=== PATIENT | male | born 1960 | race Caucasian/White ===

== ENCOUNTER → 2016-11-23 | Day surgery (SDC) | payer OTHER ==
[~2016-11-23] MED LIST: ASPIRIN EC 325 MG TAB PO ONE; DIAZEPAM 5 MG TAB ONE; DIAZEPAM 5 MG TAB PO ONE; ETOMIDATE 40 MG/20 ML INJ ONE; FAMOTIDINE 20 MG TAB ONE; FAMOTIDINE 20 MG TAB PO ONE; HEPARIN 10,000 UNIT/10 ML MDV ONE; IOPAMIDOL (ISOVUE-370) 150 ML BTL IV ONE; LIDOCAINE 1% 300 MG/30 ML SDV ONE; MIDAZOLAM 2 MG/2 ML VIAL ONE; NS 1,000 ML IV ONE; VERAPAMIL 5 MG/2 ML VIAL ONE; diphenhydrAMINE 25 MG CAP PO ONE; fentaNYL 100 MCG/2 ML INJ ONE
--- NOTE | 2016-11-23 13:27 | CPEKG ---
Heart Rate: 54 RR Interval: 1111 P-R Interval: 180 QRSD Interval: 88 QT Interval: 456 QTC Interval: 433 P [place]: 75 QRS [place]: 90 T Wave [place]: 69 EKG Severity - OTHERWISE NORMAL ECG - EKG Impression: SINUS RHYTHM EKG Impression: BORDERLINE RIGHT AXIS DEVIATION Electronically Signed By: Steve Villa 24-Nov-2016 12:02:56
[2016-11-23 13:39] LABS: % IMMATURE GRANULYOCYTES 0.3 % (0.0-1.1); ABSOLUTE IMMATURE GRANULOCYTES 0.02 10^3/uL (0.00-0.10); ADD DIFF? NO; ADD MORPH? NO; ADD SCAN? NO; ATYPICAL LYMPHOCYTE FLAG 10 (0-99); FRAGMENT RBC FLAG 0 (0-99); HEMOGLOBIN 14.9 g/dL (13.7-17.5); LEFT SHIFT FLG 0 (0-99); LIPEMIA HEMOLYSIS FLAG 90 (0-99); MEAN CELL HEMOGLOBIN 31.3 pg (27.9-34.1); MEAN CELL HEMOGLOBIN CONCENTR. 33.9 g/dL (32.4-36.7); MEAN CELL VOLUME 92.4 fL (81.5-99.8); MEAN PLATELET VOLUME 9.6 fL (8.7-11.7); PLATELET CLUMPS FLAG 0 (0-99); PLATELET COUNT 250 10^3/uL (150-400); RED BLOOD CELL COUNT 4.76 10^6/uL (4.40-6.38); RED CELL DISTRIBUTION WIDTH 12.4 % (11.5-15.2)
[2016-11-23 13:48] LABS: INR 2.11 (0.83-1.16); PROTIME(PATIENT) 23.8 SEC (12.0-15.0)
[2016-11-23 14:00] LABS: ANION GAP 11 mEq/L (8-16); CALCIUM 9.6 mg/dL (8.5-10.4); CARBON DIOXIDE 20 mEq/l (22-31); CHLORIDE 109 mEq/L (97-110); CHOLESTEROL 233 mg/dL (140-220); CHOLESTEROL/HDL RATIO 3.33 RATIO (1.00-4.97); CREATININE 0.9 mg/dL (0.7-1.3); GLOMERULAR FILTRATION RATE > 60; GLUCOSE 91 mg/dL (70-100); HIGH DENSITY LIPOPROTEIN 70 mg/dL (40-65); LDL/HDL RATIO 1.96 RATIO (1.00-3.64); LOW DENSITY LIPOPROTEIN 137 mg/dL (80-100); MAGNESIUM 1.9 mg/dL (1.6-2.3); NON-HIGH DENSITY LIPOPROTEIN 163 mg/dL (90-129); POTASSIUM 4.2 mEq/L (3.5-5.2); SODIUM 140 mEq/L (134-144); TRIGLYCERIDE 134 mg/dL (40-150); VERY LOW DENSITY LIPOPROTEINS 26 mg/dL (8-25)
--- NOTE | 2016-11-24 13:32 | CPIP ---
[f rep st] INVASIVE CARDIAC PROCEDURE DATE OF PROCEDURE: 11/23/2016 PROCEDURES PERFORMED: 1. Selective coronary angiography. 2. Left heart catheterization. 3. Left ventriculogram. 4. TR band arteriotomy repair. COMPLICATIONS: None. INDICATIONS/APPROPRIATE USE CRITERIA FOR THE PATIENT: History of positive calcium score with abnorm al and high risk stress test suggestive of possible myocardial ischemia. PROCEDURE IN DETAIL: After informed consent was obtained n.p.o. status was confirmed, the region of the left wrist was cleaned, prepped, and draped in sterile fashion. A plethysmography trace assiste d Hernesto test was performed to document dual arterial supply of the left index finger. The patient th en underwent the previously mentioned diagnostic procedures with use of JL4, JL3.5, and a 5 Lao p igtail catheter. Standard wire exchange technique was utilized for all catheter exchanges. The right coronary artery is dominant giving rise to a PDA that goes to the basal segment of the int erventricular septum and then a separate acute marginal branch which ultimately ends up in the inter ventricular sulcus midway down the blood vessel. It is 3.5 mm in size and arises anomalously and ant eriorly from the right coronary cusp. The left main coronary lumen is approximately 7 mm in size and bifurcates into an LAD, ramus intermedius, and circumflex system. The circumflex vessel was approxi mately 2.75 in size and has luminal irregularity in its proximal segment consistent with underlying atherosclerosis, maximal luminal stenosis approximately 5% to 10%. The LAD arises in its usual locat ion and courses the anterior apex giving rise to diagonal branches and to the septal branches withou t flow-limiting obstruction dissection or thrombus. The ramus intermedius vessel is smaller and appr oximately 2.5 mm in size. Again no evidence of dissection or thrombus is identified. The patient und erwent left heart catheterization demonstrating normal left ventricular end-diastolic pressure measu red at 14 mmHg. The patient underwent left ventriculogram in the MORRIS projection, demonstrating prese rved left ventricular systolic function. Ejection fraction was measured at 65%. No resting segmental wall motion abnormalities, mitral regurgitation or significant gradient was noted upon pullback acr oss the aortic valve. 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 The proximal portion of the thoracic aorta i s not enlarged and does not reveal evidence of significant atherosclerosis, aortic aneurysm formatio n or dissection. SUMMARY OF FINDINGS: 1. Normal left ventricular chamber size with preserved left ventricular systolic function and destiny l left ventricular end-diastolic pressure. 2. [place] vessel coronary disease with atherosclerosis and calcific changes consistent with underly ing atherosclerosis present in the coronary circulation. Maximal luminal stenosis was identified in the proximal and mid to left circumflex where the maximal luminal stenosis was 5% to 10%. The patien t should be a good candidate for medical management. I would recommend aspirin 81-162 mg daily along with statin therapy to achieve a non-HDL cholesterol less than 100 which is the total minus the HDL . I also think the LDL should be treated to a level less than 100 mg/dL. Triglycerides should be mon itored to ensure that fasting triglycerides are less than 135 mg/dL. 3. The patient should be treated with a statin based regimen to achieve these goals along with diet and exercise to decrease the risk of plaque development, LDL cholesterol deposition, inflammation o f the blood vessel wall and subsequent risk for heart attack. Copy requested to PCP. Copy requested to: MD Cayetano Ramirez /[id number]/[email or web address]
== END | disposition home or self-care (01) ==
LOC: FCATH 12:52
PROVIDERS: ATTEND Internal Medicine Cardiovascular Disease
DX: I25.10 Atherosclerotic heart disease of native coronary artery without angina pectoris (principal); R94.39 Abnormal result of other cardiovascular function study; D68.51 Activated protein C resistance; Z86.711 Personal history of pulmonary embolism
CPT/HCPCS: J1644; J2250; J3010; Q9967

== ENCOUNTER 2016-12-06 14:49 | Emergency (ER) | payer OTHER ==
[2016-12-06 15:01] VITALS: TEMP 98.2
--- NOTE | 2016-12-06 15:01 | CPEKG ---
Heart Rate: 55 RR Interval: 1091 P-R Interval: 180 QRSD Interval: 84 QT Interval: 416 QTC Interval: 398 P [place]: 81 QRS [place]: 84 T Wave [place]: 66 EKG Severity - NORMAL ECG - EKG Impression: SINUS RHYTHM Electronically Signed By: Steve Villa 09-Dec-2016 07:54:41
[2016-12-06] MEDS ORDERED: ASPIRIN 81 MG CHEWABLE TAB PO ONE (15:03)
--- NOTE | 2016-12-06 15:20 | EDPHY ---
H & P Time Seen by Provider: 12/06/16 15:07 HPI/ROS: CHIEF COMPLAINT: Rapid heart rate HISTORY OF PRESENT ILLNESS: 56-year-old male with a history of SVT presents with rapid heart rate. Onset of rapid heart rate 2 hours ago, now resolved. No associated symptoms and no known alleviating or aggravating factors. He usually has episodes of SVT 2 times monthly. The episodes of SVT usually resolve spontaneously. 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 Etoh: 1-2 drinks daily Smoking Status: Never smoked Physical Exam: General Appearance: Alert, pleasant Eyes: Pupils equal and round, no conjunctival pallor ENT, Mouth: Mucous membranes moist Neck: Normal inspection Respiratory: Lungs are clear to auscultation Cardiovascular: Regular rate and rhythm, no murmur Gastrointestinal: Abdomen is soft and nontender Neurological: A&O, nonfocal exam Skin: Warm and dry, no rash Extremities: Nontender, no pedal edema Psychiatric: Mood and affect normal Constitutional: Initial Vital Signs Temperature (C) 36.8 C 12/06/16 14:58 Heart Rate 55 L 12/06/16 14:58 Respiratory Rate 16 12/06/16 14:58 Blood Pressure 133/85 H 12/06/16 14:58 O2 Sat (%) 98 12/06/16 14:58 O2 Delivery Mode Room Air Allergies/Adverse Reactions: No Known Allergies Allergy (Verified 12/06/16 14:57) Home Medications: Medication Instructions Recorded Lisinopril 11/10/15 Warfarin Sodium 11/10/15 Diazepam 11/23/16 Crestor 12/06/16 Medical Decision Making - Diagnostics EKG Interpretation: EKG interpreted by me reveals normal sinus rhythm, no ST segment changes, prominent T-waves in the anterior leads. ED Course/Re-evaluation: This patient presents after an episode of SVT. He is now in normal sinus rhythm. He has a follow-up appointment with Dr. Gant in the office tomorrow. Differential Diagnosis: Differential diagnosis includes though not limited to ventricular dysrhythmia, atrial fibrillation, sinus tachycardia, hypotension, ACS. - Data Points Medications Given: Discontinued Medications Aspirin (Aspirin) 324 mg PO EDNOW ONE Stop: 12/06/16 15:04 Last Admin: 12/06/16 15:07 Dose: 324 mg Departure - Departure Disposition: Home, Routine, Self-Care Clinical Impression: Supraventricular tachycardia Condition: Good Instructions: Supraventricular Tachycardia (ED) Referrals: Gigi Gant MD [Medical Doctor] - As per Instructions (Keep your appointment for tomorrow.)
[2016-12-06 15:36] VITALS: BP 112/76; PULSE 56; RESP 14; O2SAT 95
== END 2016-12-06 15:30 | disposition home or self-care (01) ==
LOC: CED 14:49
DX: I47.1 Supraventricular tachycardia (principal); I25.10 Atherosclerotic heart disease of native coronary artery without angina pectoris; Z79.01 Long term (current) use of anticoagulants